=== PATIENT | male | born 1955 | race Two or more races ===

== ENCOUNTER → 2018-10-14 | Outpatient (CLI) | payer BC ==
--- NOTE | 2018-10-14 17:18 | CONS ---
Assessment/Plan Assessment/Plan Hospital Course (Demo Recall) This is a 62-year-old male with moderate osteoarthritis of bilateral knees. Currently his right knee hurts him more than his left knee. He also has distal hamstring tendinitis of the right knee. His pain is overall well tolerated and he continues to be very active. At this time will initiate conservative treatment. Plan: NSAIDs, meloxicam Physical therapy for bilateral knee osteoarthritis as well as right distal hamstring tendinitis Low impact activity Ice Follow-up 3 months or as needed Consultation Date/Type/Reason Admit Date/Time Date of Consultation: Oct 14, 2018 Reason for Consultation Right worse than left knee pain Date/Time of Note DATE: 10/14/18 TIME: 17:10 Hx of Present Illness Is a 62-year-old male with a chief complaint of right and left knee pain. The pain is worse in the right knee. The pain began approximately years ago. Patient had reactive arthritis that mostly affected his right knee more than 20 years ago. He also had a sports injury to his right knee as well. The patient's pain is diffuse over the right and left knee. Also complaining of pain on the distal hamstring on the right knee. Pain is not radiating to the lower leg. The pain is rated as a 4/10. Patient denies complaints of numbness or tingling. The pain is exacerbated by climbing stairs and ambulation. ----- Duration: Years Injury: Yes Walking tolerance: Several block Limp: Yes Support: No Swelling: No Crepitation: Yes Instability: Buckling of right knee Stairs: Places both feet on stairs before proceeding to next. Uses banister Physical Therapy: No Injections: No NSAID's: No Prior surgery: No Back pain: No Hip pain: No Risk of AVN : No Patient denies fever, chills, shortness of breath, chest pain, nausea/vomiting, constipation, diarrhea, numbness, and tingling. Past Medical History Reactive arthritis Prediabetes Osteoarthritis Asthma Hyperlipidemia Past Surgical History Past Surgical Hx: noncontributory Family History Significant Family History: no pertinent family hx Social History Alcohol Use: none Smoking Status: Never smoker Drug Use: none Exam/Review of Systems Exam Vitals Weight: 210 pounds Height: 5 foot 10 inches Temperature: 97.8 Heart Rate: 62 Blood Pressure: 136/73 Respiratory Rate: 12 Exam General: Awake, alert, in no acute distress, pleasant and cooperative Heart: regular rhythm Lungs: breathing comfortably, no tachypnea or dyspnea MUSCULOSKELETAL: Right and Left Knee This is a well developed male who is alert, oriented times three and in no apparent distress. Skin is intact over the right and left knee as well as the lower extremity with no abrasions, lacerations, or ulcerations. Observation of the patient's gait reveals an antalgic gait with no thrust. Frontal plane ali gnment is varus on the right > left knees. There is pain on palpation of lateral joint line and distal hamstring insertion on the right knee. Nontender to palpation over the medial and lateral joint line of the left knee. The patient demonstrates grinding anteriorly with ROM. Range of motion: 0 extension to approximately 130 degrees of flexion. Collateral ligament testing reveals no instability with varus or valgus stress at 0 and 30 degrees of flexion. Negative Jessy's and negative posterior drawer. Neurovascularly intact with 5/5 EHL/tibialis anterior/gastroc. Sensation intact to light touch in a sural, saphenous, deep peroneal, superficial peroneal, medial and lateral plantar nerve distribution. Palpable, symmetric dorsalis pedis and posterior tibial pulses in both lower extremities. Hip examination normal Imaging Imaging The patient received a standard set of films today that were personally reviewed. Imaging included a standing bilateral knee AP, PA flexion, merchant views and a dedicated lateral of the affected knees: RIGHT KNEE There is valgus alignment of the knee. There is moderate loss of joint space medial and lateral compartment(s). There is osteophyte formation. There is subchondral sclerosis. There are subchondral cysts. Degenerative changes are most severe in the lateral compartment(s). Femoral condyles are flattened LEFT KNEE There is slight varus to neutral alignment of the knee. There is moderate loss of joint space medial and lateral compartment(s). There is osteophyte formation. There is subchondral sclerosis. There are subchondral cysts. Degenerative changes are most severe in the medial compartment(s). There are irregularities of the articular surface of the distal femoral condyles. BOO TOLLIVER MD Oct 14, 2018 17:18
--- NOTE | 2018-10-17 07:55 | RADRPT ---
PROCEDURE: XR Knees. CLINICAL INDICATION: Bilateral knee pain. TECHNIQUE: Total of eight views. Weightbearing frontal, oblique, and lateral views of the both kne es. Patellar views of both knees. COMPARISON: No prior study is available for comparison. FINDINGS: There is no fracture or dislocation. The soft tissues are normal. There are degenerative changes with osteophytes arising from all 3 joint compartment margins bilatera lly. There is bilateral medial joint compartment narrowing. There is no lytic or blastic lesion. There is no radiopaque foreign body. IMPRESSION: 1. Moderate degenerative changes of both knees. 2. Otherwise unremarkable study. RPTAT: QQ .Royal Mina MD, MD Date Time Electronically viewed and signed by .Royal Mina MD, MD on 10/17/2018 07:54 .R/
== END | disposition home or self-care (01) ==
LOC: HKI 14:35
PROVIDERS: ATTEND Orthopaedic Surgery Adult Reconstructive Orthopaedic Surgery
DX: M17.0 Bilateral primary osteoarthritis of knee (principal); E78.5 Hyperlipidemia, unspecified; J45.909 Unspecified asthma, uncomplicated
CPT/HCPCS: 73564; G0463